=== PATIENT | male | born 1965 | race Caucasian/White ===

== ENCOUNTER 2019-04-27 | Day surgery (SDC) | payer BC ==
[~2019-04-27] MED LIST: AMOXICILLIN500 MG OR; ASPIRIN81 MG PO; BENADRYL 50MG C50 MG OR; BENADRYL1 CRE EX; CITALOPRAM20 M1 PO; CLONAZEP ODT2 MG PO; NO HOME MEDS; WELLBUTRIN XL300 MG PO
== END 2019-04-27 09:04 | disposition home or self-care (01) | DRG 951 ==
PROC: 0DJD8ZZ Inspection of Lower Intestinal Tract, Via Natural or Artificial Opening Endoscopic (ICD-10-PCS; principal; 2019-04-27)
DX: Z12.11 Encounter for screening for malignant neoplasm of colon (principal); Z80.0 Family history of malignant neoplasm of digestive organs